=== PATIENT | female | born 1960 | race Caucasian/White ===

== ENCOUNTER 2023-01-14 07:38 | Emergency (ER) | payer OTHER ==
[2023-01-14 07:49] VITALS: BP 124/69; PULSE 70; RESP 16; TEMP 99.7; BMI 25.7
[2023-01-14] MEDS ORDERED: SODIUM CHLORIDE 0.9% 1000 ML INFUS.BAG IV ONE (08:09)
[2023-01-14] MEDS ORDERED: ACETAMINOPHEN 1000 MG/100 ML BAG IVPB ONE (08:09)
[2023-01-14] MEDS ORDERED: ACETAMINOPHEN INJECTION 100 ML IVPB ONE (08:59)
[2023-01-14 09:35] LABS: HEMATOCRIT 38.6 % (32.4-45.2); HEMOGLOBIN 12.9 G/dL (10.7-15.3); MCHC 33.5 g/dl (32.0-36.0); MEAN CELL VOLUME 92.5 fl (80-96); MEAN PLT VOLUME 8.1 fl (7.5-11.1); PLATELET COUNT 323.9 10^3/uL (134-434); RBC 4.17 10^6/uL (3.60-5.2); RDW 14.8 % (11.6-15.6); WHITE BLOOD COUNT 13.6 10^3/uL (4.0-10.8)
[2023-01-14 10:05] LABS: BILIRUBIN,TOTAL 0.5 mg/dl (0.2-1); CALCIUM 8.8 mg/dl (8.5-10.1); CREATININE 0.7 mg/dl (0.6-1.3); SGOT/AST 20.2 U/L (15-37); TOT PROT 6.2 g/dl (6.4-8.2)
[2023-01-14 10:10] LABS: PLATELET ESTIMATE ADEQUATE
[2023-01-14 10:11] LABS: POTASSIUM 4.6 mmol/L (3.5-5.1)
[2023-01-14 11:25] LABS: EPITHELIAL CELLS MODERATE /hpf
== END 2023-01-14 12:30 | disposition home or self-care (01) ==
LOC: FER 07:38
PROC: 3E033NZ Introduction of Analgesics, Hypnotics, Sedatives into Peripheral Vein, Percutaneous Approach (ICD-10-PCS; principal; 2023-01-14)
DX: R53.83 Other fatigue (principal); M79.10 Myalgia, unspecified site; B34.9 Viral infection, unspecified
CPT/HCPCS: 0241U-QW; 36415; 71045-TC-FY; 80053; 81003; 81015; 82550; 82553; 84443; 84484; 85027; 87040; 87086; 93005; 99285-25